=== PATIENT | female | born 1980 | race Hispanic/Latino ===

== ENCOUNTER 2016-12-14 18:21 | Inpatient (IN) ==
[2016-12-14 19:30] LABS: URINE SOURCE VOIDED
[2016-12-14 19:42] LABS: BILIRUBIN URINE NEGATIVE (NEGATIVE); COLOR YELLOW; GLUCOSE URINE NEGATIVE (NEGATIVE)
[2016-12-14 19:43] LABS: LEUKOCYTES URINE 2+ (NEGATIVE)
[2016-12-14] MEDS: LR 1,000 ML IV SCH ×2 (20:00→22:21)
[2016-12-14 20:14] LABS: BLOOD URINE 2+ (NEGATIVE); CLARITY CLEAR (CLEAR); NITRITE URINE NEGATIVE (NEGATIVE); PROTEIN URINE TRACE mg/dL (NEGATIVE); SP GRAVITY URINE 1.015; UROBILINOGEN URINE NORMAL
[2016-12-14] MEDS ORDERED: TYLENOL PO PRN (20:35)
[2016-12-14] MEDS ORDERED: KEFZOL 1 GM/D5W 1 GM/50 ML IVPB IV PRN (20:35)
[2016-12-14] MEDS ORDERED: PITOCIN 30 UNITS/LR 30 UNITS/500 ML IV.SOLN IV SCH (20:35)
[2016-12-14] MEDS ORDERED: PEPCID IV PRN (20:35)
[2016-12-14] MEDS ORDERED: ZOFRAN IV PRN (20:35)
[2016-12-14] MEDS ORDERED: PEPCID PO PRN (20:35)
[2016-12-14] MEDS ORDERED: STADOL IV PRN (20:35)
[2016-12-14] MEDS ORDERED: SODIUM CHLORIDE 0.9% INJ SCH (20:45)
[2016-12-14 20:47] LABS: MANUAL DIFF NEEDED? NO
[2016-12-14 20:48] LABS: BASO% 0.4 % (0.0-0.8); EOS# 0.12 X1000 (0.0-0.7); EOS% 1.6 % (0.0-10.0); HEMATOCRIT 36.4 % (37.0-47.0); HEMOGLOBIN 11.8 g/dL (12.0-16.0); IMM GRAN# 0.01 X1000 (0.0-0.04); IMM GRAN% 0.1 % (0.0-0.5); LYMPH# 1.63 X1000 (1.2-3.4); LYMPH% 22.2 % (20.5-51.1); MCH 26.9 PG (27-31); MCHC 32.4 g/dL (33-37); MCV 82.9 FL (81-99); MONO# 0.77 X1000 (0.11-0.59); MONO% 10.5 % (1.7-9.3); MPV 12.1 FL (7.4-10.4); NEUT% 65.2 % (42.2-75.2); PLT 240 X1000 (130-400); RBC 4.39 XMIL (4.2-5.4)
[2016-12-14] MEDS ORDERED: AMPICILLIN 2 GM/NS 2 GM/100 ML IVPB IV ONE (21:11)
[2016-12-15] MEDS ORDERED: CYTOTEC ONE ×2 (00:27→00:29)
[2016-12-15] MEDS ORDERED: AMPICILLIN 1 GM/NS 1 GM/50 ML IVPB IV SCH (01:11)
[2016-12-15] MEDS ORDERED: HYDROXYZINE PO PRN (01:24)
[2016-12-15] MEDS ORDERED: CYTOTEC PO PRN (01:24)
[2016-12-15] MEDS ORDERED: BENADRYL PO PRN (01:24)
[2016-12-15] MEDS ORDERED: BOOSTRIX VACCINE IM ONE (01:24)
[2016-12-15] MEDS ORDERED: PITOCIN 20 UNITS/LR 20 UNITS/1,000 ML IV.SOLN IV SCH (01:24)
[2016-12-15] MEDS ORDERED: AMBIEN PO PRN (01:24)
[2016-12-15] MEDS ORDERED: XYLOCAINE-MPF 1% INJ PRN (01:24)
[2016-12-15] MEDS ORDERED: PERCOCET-5 PO PRN (01:24)
[2016-12-15] MEDS ORDERED: HYDROXYZINE IM PRN (01:24)
[2016-12-15] MEDS ORDERED: PERI MEDS (DERMOPLAST/NUPERCAINAL/TUCKS) MISC PRN (01:24)
[2016-12-15] MEDS ORDERED: MINERAL OIL PO PRN (01:24)
[2016-12-15] MEDS ORDERED: PITOCIN 30 UNITS/LR 30 UNITS/500 ML IV.SOLN IV ONE (01:24)
[2016-12-15] MEDS ORDERED: BENADRYL IV PRN (01:24)
[2016-12-15] MEDS ORDERED: PITOCIN IM PRN (01:24)
[2016-12-15] MEDS: PERCOCET-10 PO PRN ×4 (01:51→21:52)
[2016-12-15] MEDS: MOTRIN PO PRN ×2 (01:51→14:57)
[2016-12-15] MEDS: HUMULIN R DOSE (PARKWAY) SUBQ SCH ×2 (06:42→11:23)
[2016-12-15] MEDS: PRECARE PO SCH (09:21)
--- NOTE | 2016-12-15 09:49 | Diag Imaging Result Doc PS360 ---
EXAM: US OBS COMPLETE > 14 WKS HISTORY: Gestational Diabetes, Possible Macrosomia COMPARISON: 08/09/2016 FINDINGS: A single viable intrauterine fetus is identified with an estimated gestational age of 37 weeks six days +/- 16 days and an estimated due date is 12/29/2016. Presentation is cephalic. heart rate is 160 bpm. Estimated weight 8 pounds, 6 ounces, 3804 +/- 441 g. The placenta is anterior. A three-vessel cord, bladder, kidneys, stomach, and spine are unremarkable. Four-chamber heart is identified. Normal cord insertion site. Gender is male. Amniotic fluid volume is subjectively normal. There appear to be bilateral scrotal hydroceles. There is a suggestion of body wall edema measuring 13 mm. There is no obvious ascites. No pleural effusion is appreciated. The calvarium is poorly visualized due to positioning. IMPRESSION: Viable intrauterine fetus with an estimated gestational age of 37 weeks 6 days.. There appears to be skin thickening. Possible small bilateral hydroceles. Correlate clinically. Electronically signed by Altagracia Milan 12/15/2016 9:46 AM
[2016-12-15] MEDS: HUMULIN R (PARKWAY) SUBQ SCH ×2 (17:05→21:50)
[2016-12-15] MEDS ORDERED: PERICOLACE PO SCH (21:00)
--- NOTE | 2016-12-15 21:19 | OPERATIVE NOTE ---
PROCEDURE DATE: 12/15/2016 DIAGNOSES: 1. A 36-year-old G6, P5-0-0-5 at 37 weeks and 2 days in active labor. 2. DMII-uncontrolled 3. insufficient care 4. medical noncompliance 5. advanced maternal age 6. Meconium stained fluid. 7. Shoulder dystocia. 8. Large for gestational age DELIVERING PHYSICIAN: Dr. Navya Tracy. PROCEDURE: spontaneous vaginal delivery COMPLICATIONS: Shoulder dystocia. DELIVERING SUMMARY: This 36-year-old G6, P-5-0-0-5 at 37 weeks and 2 days with uncontrolled DMII was admitted in active labor. Patient received an ultrasound for estimated weight due to type 2 DM, noncompliance of insulin and insufficient care. Patient's ultrasound showed estimated weight of 3804 g fetus. Decision was made to continue with labor. Patient was found to have 2+ meconium stained fluid. Patient was complete, complete and +2 and with good maternal effort patient delivered the head atraumatically. A shoulder dystocia was then noted which was relieved using the Paramjit maneuver and suprapubic pressure. A right medio-lateral episiotomy was cut and the right posterior arm of the was delivered. The body was then delivered with copious amounts of amniotic fluid. The cord was clamped and cut and the was passed off to the awaiting pediatric team. The was delivered in the right occiput anterior position weighing 5015 g with Apgars of 3 and 9. Cord blood was then obtained. The placenta was delivered spontaneously intact and a 3-vessel cord was noted. The placenta was noted to be enlarged and meconium-stained. Pitocin was started and 800 mcg of Cytotec was placed per rectum. The episiotomy created a second-degree perineal laceration which was repaired in the normal fashion using 2-0 Vicryl. Good hemostasis was noted. The mother and baby were both stable in the delivery room. cc: Navya Tracy MD [facility]
[2016-12-16 06:09] LABS: MANUAL DIFF NEEDED? NO
[2016-12-16 06:17] LABS: BASO% 0.4 % (0.0-0.8); EOS# 0.22 X1000 (0.0-0.7); HEMATOCRIT 27.6 % (37.0-47.0); HEMOGLOBIN 8.6 g/dL (12.0-16.0); IMM GRAN# 0.01 X1000 (0.0-0.04); IMM GRAN% 0.1 % (0.0-0.5); LYMPH# 1.98 X1000 (1.2-3.4); LYMPH% 26.6 % (20.5-51.1); MCH 26.1 PG (27-31); MCHC 31.2 g/dL (33-37); MCV 83.6 FL (81-99); MONO% 12.1 % (1.7-9.3); MPV 11.2 FL (7.4-10.4); NEUT% 57.8 % (42.2-75.2); PLT 203 X1000 (130-400)
[2016-12-16] MEDS: PERCOCET-10 PO PRN (06:43)
[2016-12-16] MEDS: MOTRIN PO PRN (06:43)
[2016-12-16] MEDS: HUMULIN R (PARKWAY) SUBQ SCH ×2 (06:44→11:42)
[2016-12-16 09:27] VITALS: BP 109/57
[2016-12-16] MEDS: PRECARE PO SCH (09:29)
--- NOTE | 2016-12-16 21:57 | OB/GYN PROGRESS NOTE ---
Progress Note OB - . OB Progress Note: Vital Signs - 24 hr 12/16/16 09:23 Temperature 96.6 F L Pulse Rate 73 Respiratory Rate 16 Blood Pressure 109/57 O2 Sat by Pulse Oximetry 95 Laboratory Results - last 24 hr 12/15/16 12/16/16 12/16/16 21:49 05:15 06:38 WBC 7.44 RBC 3.30 L Hgb 8.6 L D Hct 27.6 L D MCV 83.6 MCH 26.1 L MCHC 31.2 L RDW Std Deviation 14.2 Plt Count 203 MPV 11.2 H Immature Gran % (Auto) 0.1 Neut % (Auto) 57.8 Lymph % (Auto) 26.6 [place] % (Auto) 12.1 H Eos % (Auto) 3.0 Baso % (Auto) 0.4 Immature Gran # (Auto) 0.01 Neut # (Auto) 4.30 Lymph # (Auto) 1.98 [place] # (Auto) 0.90 H Eos # (Auto) 0.22 Baso # (Auto) 0.03 POC Glucose 182 H 131 H 12/16/16 11:28 WBC RBC Hgb Hct MCV MCH MCHC RDW Std Deviation Plt Count MPV Immature Gran % (Auto) Neut % (Auto) Lymph % (Auto) [place] % (Auto) Eos % (Auto) Baso % (Auto) Immature Gran # (Auto) Neut # (Auto) Lymph # (Auto) [place] # (Auto) Eos # (Auto) Baso # (Auto) POC Glucose 169 H Patient doing well without complaint. Pain is well controlled. Tolerating diabetic diet. Bottle feeding. Ambulating and voiding without difficulty. Father reports that baby is doing well at [facility]. Phone admissions clerk used. Gen: NAD, alert Abd: soft, nontender, fundus firm and at umbilicus Pelvis: minimal lochia rubra Ext: no edema, nontender, Troy's- A/P: 36yo who is PPD#1 s/p , doing well -continue routine care -continue diabetic diet -continue sliding scale -continue PO pain meds -encourage ambulation -Discussed the events of the delivery with the patient and . They voiced understanding of the shoulder dystocia and weight of baby being due to diabetes and uncontrolled glucose. -Dispo: home today with insulin regimen: 25N/16R before breakfast, 13R before dinner, and 12N at bedtime. Encourage patient to continue glucose check 4x daily. Also encouraged patient to see Family Physician to manage blood glucose levels. Hypoglycemic precautions given. Navya Tracy MD APPLICATION SUPPORT MANAGER
--- NOTE | 2017-01-23 18:33 | DISCHARGE SUMMARY ---
ADMISSION DATE: 12/14/2016 DISCHARGE DATE: 12/16/2016 PROCEDURE DATE: 12/15/16. PROCEDURE: 1. Spontaneous vaginal delivery. 2. Right medial lateral episiotomy repair. 3. Reduction of shoulder dystocia. DELIVERING PHYSICIAN: Dr. Navya Tracy. ADMISSION DIAGNOSIS: 1. A 36-year-old, 6 para 5-0-0-5 at 37 weeks and 2 days in active labor. 2. Type 2 diabetes, uncontrolled. 3. Insufficient care. 4. Medical noncompliance. 5. Advanced maternal age. 6. Meconium-stained fluid. 7. Shoulder dystocia. 8. Large for gestational age. HOSPITAL COURSE: This 36-year-old, 6 para 5-0-0-5 at 37 weeks and 2 days was admitted in active labor. The patient had an ultrasound with estimated weight of 3804 g fetus. Patient's delivery was complicated by shoulder dystocia. Patient delivered a male weighing 5015g with APGARs of 3 and 9. Patient's course was unremarkable, and the patient was discharged home on day 1. DISCHARGE EXAMINATION: General: No acute distress. Alert and oriented. Abdomen: Soft, nontender, fundus firm in umbilicus. Pelvis: Minimal lochia rubra. Extremities: No edema. Nontender. Homans is negative. DISCHARGE INSTRUCTIONS: The patient should continue diabetic diet. Patient to have nothing per vagina. DISCHARGE MEDICATIONS: Patient was discharged home with an insulin regimen of 25 NPH and 16 regular before breakfast, 13 regular before dinner and 12 NPH at bedtime. The patient also was discharged home with Colace, ferrous sulfate, hydrocortisone foam, ibuprofen and vitamins. DISCHARGE FOLLOWUP: Patient to follow up with Dr. Tracy in 6 weeks. cc: Navya Tracy MD [facility]
== END 2016-12-16 12:00 | disposition home or self-care (01) ==
LOC: P.OPLD 18:21 → P.LD 18:23
PROVIDERS: ADMIT Student in an Organized Health Care Education/Training Program; ATTEND Student in an Organized Health Care Education/Training Program